=== PATIENT | female | born 2000 | race Asian ===

== ENCOUNTER 2022-01-29 02:40 | Emergency (ER) | payer SELFPAY ==
[~2022-01-29] VITALS: Ht 160 cm; Wt 52.2 kg
[2022-01-29 02:45] VITALS: BP 110/70
--- NOTE | 2022-01-29 02:45 | NUR ---
pt taken to bed 07.
--- NOTE | 2022-01-29 02:49 | NUR ---
BIBA TAKEN TO BED #7
[2022-01-29] MEDS ORDERED: ONDANSETRON 4 MG ODT PO ONE (02:50)
--- NOTE | 2022-01-29 03:09 | NUR ---
jaclyn from [facility] with c/c of etoh. campus security called [facility]. +n/v. denies fall. states she had about 5 drinks of hard liquor. denies hx rx nka
[2022-01-29 03:10] VITALS: BP 110/70
--- NOTE | 2022-01-29 03:10 | NUR ---
8/10 CHEST PRESSURE RAD TO BACK X3DAYS. REPORTS FEELING ANXIOUS. REPORTS DECREASED SLEEP. STATES SHE HAS HX OF ANXIETY, FEELS LIKE SHE CANT CONTROL THE ANXIETY ANYMORE. ROSANA
--- NOTE | 2022-01-29 03:15 | NUR ---
Patient presented to facility under the influence of Alcohol. Patient is currently ambulatory with steady gait, able to walk unassisted. Positive gag reflex. Alert and oriented. Is not driving self for discharge out of facility. Pt discharged into the care of her sister.
== END 2022-01-29 03:15 | disposition home or self-care (01) ==
LOC: MED 02:40
DX: F10.129 Alcohol abuse with intoxication, unspecified (principal); R11.10 Vomiting, unspecified
CPT/HCPCS: 99283; Q0162